=== PATIENT | male | born 1975 | race Caucasian/White ===

== ENCOUNTER 2018-12-11 08:20 | Day surgery (SDC) | payer MEDICAID ==
[~2018-12-11 08:20] MED LIST: Bupivacaine 0.5% 50 ML MDV ONE; Dexamethasone 4 MG/ML SDV ONE; Glycopyrrolate 0.2 MG/ML 5 ML MDV ONE; Lidocaine 1% with EPINEPHrine 1:100,000 50 ML MDV ONE; Neostigmine Methylsulfate 1 MG/ML 5 ML Syringe ONE; Ondansetron 4 MG/2 ML SDV ONE; Propofol 200 MG/20 ML SDV ONE; Rocuronium 50 MG/5 ML Vial ONE; Sodium Chloride 0.9% 1,000 ML IV SCH; ceFAZolin 2 GM in Premix Bag 1 BAG IV ONE; ceFAZolin 2 GM in Sodium Chloride 0.9% 50 ML IV ONE; fentaNYL 250 MCG/5 ML SDV ONE; metroNIDAZOLE/Normal Saline 500 MG in Premix Bag 1 BAG IV ONE
[2018-12-11] MEDS ORDERED: fentaNYL 250 MCG/5 ML SDV ONE ×3 (08:21→10:21)
[2018-12-11] MEDS ORDERED: Ondansetron 4 MG/2 ML SDV ONE (08:22)
[2018-12-11] MEDS ORDERED: Dexamethasone 4 MG/ML SDV ONE (08:22)
[2018-12-11] MEDS ORDERED: Succinylcholine 200 MG/10 ML MDV ONE (08:22)
[2018-12-11] MEDS ORDERED: Rocuronium 50 MG/5 ML Vial ONE (08:22)
[2018-12-11] MEDS ORDERED: Glycopyrrolate 0.2 MG/ML 5 ML MDV ONE (08:22)
[2018-12-11] MEDS ORDERED: Propofol 200 MG/20 ML SDV ONE (08:22)
[2018-12-11] MEDS ORDERED: Neostigmine Methylsulfate 1 MG/ML 5 ML Syringe ONE (08:22)
[2018-12-11] MEDS ORDERED: Labetalol 20 MG/4 ML Syringe ONE (08:42)
[2018-12-11] MEDS ORDERED: Sodium Chloride 0.9% 1,000 ML IV SCH (08:45)
[2018-12-11] MEDS ORDERED: metroNIDAZOLE/Normal Saline 500 MG in Premix Bag 1 BAG IV ONE (09:30)
[2018-12-11] MEDS ORDERED: ceFAZolin 2 GM in Premix Bag 1 BAG IV ONE (09:30)
[2018-12-11] MEDS ORDERED: ceFAZolin 2 GM in Sodium Chloride 0.9% 50 ML IV ONE (09:30)
[2018-12-11] MEDS ORDERED: hydrOXYzine HCl 100 MG/2 ML SDV IM ONE (11:04)
[2018-12-11] MEDS ORDERED: fentaNYL 100 MCG/2 ML SDV IVPUSH ONE (11:05)
[2018-12-11] MEDS ORDERED: Acetaminophen/HYDROcodone 325-5 MG Tab PO PRN (11:53)
--- NOTE | 2018-12-11 12:46 | OR ---
DATE OF PROCEDURE: 12/11/2018 PROCEDURE: Right total extraperitoneal hernia repair, incarcerated, recurrent. PREOPERATIVE DIAGNOSIS: Recurrent incarcerated right inguinal hernia. POSTOPERATIVE DIAGNOSIS: Recurrent incarcerated right inguinal hernia. RISKS: Risks, benefits, alternatives, and limitations including, but not limited to infection, bleeding, injury to abdominal structures, injury to bowel or bladder, requirement for open surgery, testicular injury leading to testicular loss, hematoma, seroma, and other risks not listed here were explained to the patient who wished to proceed. ANESTHESIA: General. PROCEDURE IN DETAIL: The patient was placed in supine position. A midline abdominal incision was made approximately 1 cm in size. This was carried down with electrocautery to the fascia, which was also opened with electrocautery. Using a muscle-sparing technique, the rectus muscles were slid to side. Preperitoneal layer was identified and a Pean was used to create the preperitoneal space. Once the space was created, the balloon introducer was advanced to the pubic symphysis. This was then insufflated approximately x3. This was under direct visualization. The pressure was held for approximately 2 minutes. The dissecting balloon was deflated and removed. The preperitoneal space was insufflated. No peritoneal rent or other abnormality was noted. The hernia was noted to be recurrent. Dissection commenced from a [id number] in a classic fashion. The perineum and its associated contents were able to be mobilized from the cord structures. This was bluntly dissected. The cord structures were identified and deflected medially and not interacted with in any way. At no time was the "triangle of doom" nor the "triangle of pain" interacted with or entered in any way. Once dissection was completed, no abnormal bleeding was noted. The pressure was dropped to verify this. The mesh was then introduced and advanced at the angle of the pubic symphysis. This was placed directly over the hernia and was unfolded completely. This was noted to have good placement with approximately 1 to 2 cm over the pubic symphysis. The hernia itself was noted to be an indirect hernia. The mesh was held in place as the air was removed. The fascia was closed with #1 Vicryl sutures x2. The subcutaneous tissues were closed with 3-0 Vicryl, and the skin was closed with 4-0 Vicryl. Dermabond was applied. The patient tolerated the procedure well. Yosi Mae MD /[id number]
--- NOTE | 2018-12-11 13:22 | OR ---
DATE OF PROCEDURE: 12/11/2018 PROCEDURE: Transversus abdominis plane block bilaterally. COMPLICATIONS: None. PASTOR: None. PREOPERATIVE DIAGNOSIS: Requirement for pain management. POSTOPERATIVE DIAGNOSIS: Requirement for pain management. DESCRIPTION OF PROCEDURE: The patient was placed in supine position. The right transversus abdominis plane was identified first. This was identified under direct ultrasound guidance. Once this plane was identified, the entire content of the solution was injected into this aforementioned plane. The left side was then performed in the same manner, same fashion, same technique, and same sequence using the same equipment, except for different needle and syringe. This was also under direct ultrasound guidance. The needle was removed. The patient tolerated the procedure well. Yosi Mae MD /[id number]
== END 2018-12-11 12:25 | disposition home or self-care (01) ==
LOC: JP.SDS 08:20
PROVIDERS: ATTEND Surgery
DX: K40.31 Unilateral inguinal hernia, with obstruction, without gangrene, recurrent (principal); B35.1 Tinea unguium; K21.9 Gastro-esophageal reflux disease without esophagitis; Z98.890 Other specified postprocedural states
CPT/HCPCS: 49521; C1781; J0171; J0330; J0690; J1100; J2405; J2704; J2710; J2795; J3010; J3490; J7030; J7050; J3410

== ENCOUNTER 2024-03-19 14:04 | Emergency (ER) | payer MEDICAID ==
[2024-03-19] MEDS: Diphtheria,Pertussis(Acell),Tetanus Vaccine 0.5 ML Syringe IM ONE (14:41)
[2024-03-19] MEDS: fentaNYL 50 MCG/ML SDV IVPUSH ONE (14:45)
[2024-03-19] MEDS: Lidocaine 1% 10 ML MDV INJECT ONE ×2 (14:45→15:38)
[2024-03-19] MEDS: ceFAZolin 1 GM in Premix Bag 1 BAG IV ONE (14:55)
[2024-03-19] MEDS: Lidocaine 1% 10 ML MDV ONE (15:26)
== END 2024-03-19 16:36 | disposition home or self-care (01) ==
LOC: JP.ED 14:04
DX: S70.351A Superficial foreign body, right thigh, initial encounter (principal); Z79.899 Other long term (current) drug therapy; W22.8XXA Striking against or struck by other objects, initial encounter
CPT/HCPCS: 73552; 96365; 96375; 99283; J0689; J3010